=== PATIENT | female | born 1990 | race Caucasian/White ===

== ENCOUNTER 2020-10-17 20:44 | Emergency (ER) | payer MEDICAID ==
[2020-10-17] MEDS ORDERED: LORazepam 1 MG TABLET PO STA (22:01)
--- NOTE | 2020-10-17 22:03 | ED Physician Documentation ---
History of Present Illness - Stated complaint Stated Complaint: WITHDRAWAL - Chief complaint Chief Complaint: General - History obtained from History obtained from: Patient - History of Present Illness Timing: Today Pain level max: 0 Pain level now: 0 - Additonal information Additional information: Patient is a 30-year-old female who presents to the emergency department with withdrawal from her long-term benzodiazepine use. She states that she has been unable to get it filled by her doctor because of the holiday weekend. Nothing makes it better or worse. She feels shaky. No seizure activity. No chest pain. Review of Systems Ten Systems: 10 systems reviewed and negative Constitutional: denies: Fever, Chills GI: denies: Vomiting, Diarrhea : denies: Now EGA Skin: denies: Rash Musculoskeletal: denies: Neck pain, Back pain Neurologic: denies: Headache PD PAST MEDICAL HISTORY - Past Medical History Past Medical History: Yes Psych: Depression, Anxiety - Past Surgical History Past Surgical History: No - Present Medications Home Medications: Ambulatory Orders Medication Instructions Recorded Confirmed LORazepam [Ativan] 0.5 mg PO Q8H PRN #5 tablet 10/17/20 Sertraline [Zoloft] 150 mg PO DAILY #15 tablet 10/17/20 Zolpidem [Ambien] 5 mg PO HS #5 tablet 10/17/20 cloNIDine [Catapres] 0.1 mg PO TID #15 tablet 10/17/20 clonazePAM [Klonopin] 1 mg PO BID #10 tablet 10/17/20 - Allergies Allergies/Adverse Reactions: Allergies Allergy/AdvReac Type Severity Reaction Status Date / Time No Known Drug Allergies Allergy Verified 10/17/20 20:55 - Social History Does the pt smoke?: Yes Smoking Status: Current every day smoker Does the pt drink ETOH?: No Does the pt have substance abuse?: Yes Substance Use and Type: Other - Immunizations Immunizations are current?: Yes - POLST Patient has POLST: No PD ED PE NORMAL - Vitals Vital signs reviewed: Yes - General General: Alert and oriented X 3, No acute distress - HEENT HEENT: Moist mucous membranes - Neck Neck: Supple, no meningeal sign - Cardiac Cardiac: RRR, Strong equal pulses - Respiratory Respiratory: No respiratory distress, Clear bilaterally - Abdomen Abdomen: Soft, Non tender, Non distended - Derm Derm: Warm and dry - Extremities Extremities: No edema - Neuro Neuro: Alert and oriented X 3 Results - Vitals Vitals: Vital Signs - 24 hr 10/17/20 10/17/20 20:50 22:14 Temperature 36.2 C L 36.8 C Heart Rate 93 80 Respiratory 16 20 Rate Blood Pressure 138/82 H 127/70 O2 Saturation 199 H 99 Oxygen O2 Source Room air PD MEDICAL DECISION MAKING - ED course Complexity details: considered differential, d/w patient ED course: Reviewed the patient's prescription history and appears that she does receive these medications regularly from a single prescriber. We will prescribe a few d ays worth to get her through the long weekend and allow her to contact her doctor for further refills. Patient counseled regarding signs and symptoms for which I believe and urgent re-evaluation would be necessary. Patient with good understanding of and agreement to plan and is comfortable going home at this time This document was made in part using voice recognition software. While efforts are made to proofread this document, sound alike and grammatical errors may occur. Departure - Departure Disposition: 01 Home, Self Care Clinical Impression: Benzodiazepine withdrawal Qualifiers: Complication of substance-induced condition: uncomplicated Qualified Code(s): F13.230 - Sedative, hypnotic or anxiolytic dependence with withdrawal, uncomplicated Condition: Good Instructions: ED Withdrawal Benzodiazepine Follow-Up: Kp Fernández DO [Physician No Access] - Within 3 Days Prescriptions: Zolpidem [Ambien] 5 mg PO HS #5 tablet LORazepam [Ativan] 0.5 mg PO Q8H PRN #5 tablet PRN Reason: Anxiety cloNIDine [Catapres] 0.1 mg PO TID #15 tablet clonazePAM [Klonopin] 1 mg PO BID #10 tablet Sertraline [Zoloft] 150 mg PO DAILY #15 tablet Comments: You will need to follow-up with your doctor for further medication refills. Contact him on Sunday. Return if you worsen. We will not be able to prescribe further refills from the emergency department. Discharge Date/Time: 10/17/20 22:17
[2020-10-17 22:14] VITALS: BP 127/70
== END 2020-10-17 22:17 | disposition home or self-care (01) ==
LOC: ED 20:44
DX: F13.230 Sedative, hypnotic or anxiolytic dependence with withdrawal, uncomplicated (principal); Z76.0 Encounter for issue of repeat prescription; F32.9 Major depressive disorder, single episode, unspecified; F41.9 Anxiety disorder, unspecified; F17.200 Nicotine dependence, unspecified, uncomplicated
CPT/HCPCS: 99283; 99284; J8499